=== PATIENT | male | born 1985 | race Caucasian/White ===

== ENCOUNTER 2017-10-08 22:25 | Emergency (ER) | payer SELFPAY, OTHER ==
[2017-10-08] MEDS ORDERED: CLINDAMYCIN 300 MG INJ IV (22:30)
[2017-10-08 22:41] LABS: ADD MAN DIFF? NO
[2017-10-08] MEDS: SOD CHLORIDE 0.9% 1,000 ML IV (22:45)
[2017-10-08] MEDS: DIPHTH/TET/ACEL PERTUSS (ADULT) 0.5 ML VIAL IM* (22:45)
[2017-10-08 22:47] LABS: BASOPHILS % 0.3 % (0.0-2.0); EOSINOPHILS # 0.3 10^3/ul (0.0-0.5); HEMATOCRIT 39.8 % (42.0-52.0); HEMOGLOBIN 13.6 g/dl (14.0-18.0); LYMPHOCYTES # 2.1 10^3/ul (0.8-2.9); LYMPHOCYTES % 23.1 % (15.0-51.0); MEAN CORPUSCULAR HEMOGLOBIN 31.2 pg (29.0-33.0); MEAN CORPUSCULAR HGB CONC 34.2 g/dl (32.0-37.0); MEAN CORPUSCULAR VOLUME 91.3 fl (82.0-101.0); MEAN PLATELET VOLUME 9.9 fl (7.4-10.4); MONOCYTE # 0.6 10^3/ul (0.3-0.9); MONOCYTES % 6.6 % (0.0-11.0); NEUTROPHIL # 6.1 10^3/ul (1.6-7.5); NEUTROPHILS % 66.5 % (39.0-77.0); PLATELET COUNT 364 10^3/UL (140-415); RED BLOOD COUNT 4.36 10^6/ul (4.70-6.10); RED CELL DISTRIBUTION WIDTH 12.2 % (11.5-14.5)
[2017-10-08 22:47] LABS: WHITE BLOOD COUNT 9.2 10^3/ul (4.8-10.8)
[2017-10-08] MEDS ORDERED: CLINDAMYCIN 300 MG/D5W (PMX) 50 ML IVPB (23:00)
[2017-10-08 23:06] LABS: INR 0.94; PROTIME 12.7 Sec (11.9-14.9)
[2017-10-08 23:07] LABS: ANION GAP 18 (8-16); BLOOD UREA NITROGEN 13 mg/dl (7-20); CALCIUM 9.5 mg/dl (8.4-10.2); CARBON DIOXIDE 23 mmol/L (21-31); CHLORIDE 108 mmol/L (97-110); CREATININE 0.94 mg/dl (0.61-1.24); GLUCOSE 105 mg/dl (70-220); PARTIAL THROMBOPLASTIN TIME 30.6 Sec (25.0-35.0); SODIUM 145 mmol/L (135-144)
== END 2017-10-10 09:57 | disposition short-term general hospital (02) ==
LOC: E/R 10-10 09:57
DX: S55.111A Laceration of radial artery at forearm level, right arm, initial encounter (principal); X99.1XXA Assault by knife, initial encounter; Y92.9 Unspecified place or not applicable; Z23 Encounter for immunization
CPT/HCPCS: 80048; 85025; 85610; 85730; 86850; 86900; 86901; 90471; 90715; 99291-25